=== PATIENT | female | born 1980 | race Caucasian/White ===

== ENCOUNTER 2021-05-03 14:02 | Outpatient (CLI) | payer OTHER, SELFPAY ==
--- NOTE | 2021-05-03 14:12 | MR_ITS ---
WS: [id number] MRI/MRCP OF THE ABDOMEN WITHOUT GADOLINIUM ENHANCEMENT TECHNIQUE: Thin and thick slab MRCP, Axial T2, Coronal MRCP, Axial Dual Echo, and Axial 2-D Fiesta imaging was obtained. Coronal 2-D Fiesta imaging. CLINICAL INFORMATION: FATTY LIVER DZ/HEPATOMEGALY/DILATED COMMON BILE DUCT COMPARISON: Ultrasound gallbladder April 20, 2021 FINDINGS: Mild hepatomegaly. No intrahepatic biliary ductal dilatation. Common bile duct has a more normal appe arance today measuring 5 mm. Normal gallbladder. No gallbladder wall thickening or pericholecystic fl uid. Normal tapering of the common bile duct distally. No choledocholithiasis. Pancreas is normal in appearance. No evidence of pancreatic head lesion. Normal portal vein and splen ic vein. No hydronephrosis in either kidney. Normal caliber abdominal aorta. Normal spleen. MR/MR MRCP [id number] Impression: 1. Mild hepatomegaly.No intrahepatic biliary ductal dilatation. 2. No choledocholithiasis. Gallbladder appears normal. 3. Common bile duct has a more normal appearance today. Normal tapering of the common bile duct distally. Common bile duct measures 5 mm. No evidence of chol edocholithiasis. 4. No hydronephrosis in either kidney. 5. No other significant findings.
== END 2021-05-03 14:03 | disposition home or self-care (01) ==
LOC: RAD 14:03
PROVIDERS: PCP Electrodiagnostic Medicine; Visit Provider Electrodiagnostic Medicine
DX: K76.0 Fatty (change of) liver, not elsewhere classified (principal); R16.0 Hepatomegaly, not elsewhere classified; K83.8 Other specified diseases of biliary tract
CPT/HCPCS: 74181

== ENCOUNTER → 2021-05-05 08:00 | Outpatient (BNVA) | payer OTHER, SELFPAY | PROVIDERS: PCP Nurse Practitioner Family; Visit Provider Nurse Practitioner Family | DX: K75.81 Nonalcoholic steatohepatitis (NASH) (principal); Z13.6 Encounter for screening for cardiovascular disorders; Z13.1 Encounter for screening for diabetes mellitus; K80.50 Calculus of bile duct without cholangitis or cholecystitis without obstruction | CPT/HCPCS: 80053; 80061; 83690; 86141 ==

== ENCOUNTER → 2023-01-18 11:23 | Outpatient (BNVA) | payer OTHER, SELFPAY | PROVIDERS: PCP Nurse Practitioner Family; Visit Provider Family Medicine | DX: Z68.42 Body mass index [BMI] 45.0-49.9, adult (principal); K75.81 Nonalcoholic steatohepatitis (NASH); K14.8 Other diseases of tongue | CPT/HCPCS: 80053; 80061; 83036; 84439; 84443; 85025 ==

== ENCOUNTER 2023-03-17 17:04 | Outpatient (CLI) | payer OTHER, SELFPAY ==
--- NOTE | 2023-03-17 | CTR_ITS ---
PROCEDURE INFORMATION: Exam: CT Neck With Contrast Exam date and time: 03/17/2023 5:23 PM Age: 42 years old Clinical indication: Mass, lump, or swelling in neck; Patient HX: Neoplasm of uncertain behavior of tongue; PT states bx on mass left side of tongue came back abnormal TECHNIQUE: Imaging protocol: Computed tomography of the neck with contrast. Radiation optimization: All CT scans at this facility use at least one of these dose optimization techniques: automated exposure control; mA and/or kV adjustment per patient size (includes targeted exams where dose is matched to clinical indication); or iterative reconstruction. Contrast material: OMNIPAQUE 350; Contrast volume: 95 ml; Contrast route: INTRAVENOUS (IV); COMPARISON: No relevant prior studies available. RADIATION DOSE METRICS: Total DLP (mGy-cm): 396.51 FINDINGS: Pharynx: Unremarkable. No significant tonsillar enlargement. Larynx: Unremarkable. Epiglottis is normal. Prevertebral and retropharyngeal spaces: Unremarkable. Salivary glands: Normal. Glands are normal in size. Thyroid: Normal. No enlarged or calcified nodules. Lymph nodes: Unremarkable. No lymphadenopathy. Trachea: Visualized trachea is unremarkable. Lungs: Unremarkable as visualized. Bones/joints: Unremarkable. No acute fracture. Soft tissues: Unremarkable. No significant soft tissue swelling. CT/CT neck w con* [id number] IMPRESSION: There is no evidence of active neoplastic disease.
[2023-03-17] MEDS: iohexol 350 mg/mL 500 mL Btl (per mL) IV (17:25)
== END 2023-03-17 17:05 | disposition home or self-care (01) ==
LOC: RAD 17:04
PROVIDERS: PCP Family Medicine; Visit Provider Otolaryngology
DX: D37.02 Neoplasm of uncertain behavior of tongue (principal)
CPT/HCPCS: 70491; Q9967

== ENCOUNTER → 2024-01-02 16:01 | Outpatient (BNVA) | payer OTHER, SELFPAY | PROVIDERS: PCP Family Medicine; Visit Provider Nurse Practitioner Women's Health | DX: Z01.419 Encounter for gynecological examination (general) (routine) without abnormal findings (principal); N92.0 Excessive and frequent menstruation with regular cycle | CPT/HCPCS: 87624 ==

== ENCOUNTER 2024-01-22 07:20 | Outpatient (CLI) | payer OTHER, SELFPAY ==
--- NOTE | 2024-01-22 07:30 | MM_ITS ---
WS: [id number] BILATERAL SCREENING DIGITAL TOMOSYNTHESIS MAMMOGRAM WITH CAD HISTORY: Z12.39 - Encounter for other screening for malignant neop... COMPARISON: None available. Bilateral CC and MLO views with tomosynthesis and synthetic mammography submitted. Computer aided det ection analyzed. Breast composition: There are scattered areas of fibroglandular density. No suspicious masses, microc alcifications or architectural distortion. Scattered calcifications. MM/MM scr BI tomosynthesis [id number] IMPRESSION: BI-RADS: 2 - Benign. FOLLOW UP: 1 Year Follow-up
== END 2024-01-22 07:21 | disposition home or self-care (01) ==
LOC: RAD 07:20
PROVIDERS: PCP Family Medicine; Visit Provider Nurse Practitioner Women's Health
DX: Z12.31 Encounter for screening mammogram for malignant neoplasm of breast (principal); R92.323 Mammographic fibroglandular density, bilateral breasts; R92.1 Mammographic calcification found on diagnostic imaging of breast
CPT/HCPCS: 77063; 77067

== ENCOUNTER → 2024-04-01 09:45 | Outpatient (BNVA) | payer OTHER, SELFPAY | PROVIDERS: PCP Family Medicine; Visit Provider Nurse Practitioner Women's Health | DX: Z01.419 Encounter for gynecological examination (general) (routine) without abnormal findings (principal); Z00.00 Encounter for general adult medical examination without abnormal findings | CPT/HCPCS: 80053; 82306; 82465; 82670; 83001; 83002; 83036; 83718; 83721; 84402; 84403; 84443; 85025 ==

== ENCOUNTER 2024-04-06 19:25 | Emergency (ER) | payer OTHER, SELFPAY ==
[2024-04-06] VITALS (7 sets, daily range): BP systolic 127–160; BP diastolic 63–85; PULSE 76–118; RESP 14–21; TEMP 36.9; O2SAT 98–100; BMI 51.7
--- NOTE | 2024-04-06 19:45 | XRR_ITS ---
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 Views: 1 view. COMPARISON: CT neck w con* [id number] 03/17/2023 5:23 PM FINDINGS: Lungs: Clear. No consolidation. Pleural spaces: No significant pleural effusion. No pneumothorax. Heart/Mediastinum: Within normal limits. No cardiomegaly. Bones/joints: Intact. Other findings: None. XR/XR chest 1V portable [id number] IMPRESSION: No acute findings.
--- NOTE | 2024-04-06 19:45 | ECG_ITS ---
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 Measurements Intervals [place] Rate: 114 P: 44 VA: 132 QRS: 52 QRSD: 86 T: 23 QT: 310 QTc: 428 Interpretive Statements SINUS TACHYCARDIA Nonspecific ST changes ABNORMAL RHYTHM ECG No previous ECG available for comparison Electronically Signed On 04-07-2024 12:11:28 PHYSICAL EDUCATION AIDE by Capri Mcallister M.D. [email or web address]
[2024-04-06 20:12] LABS: Basophils # 0.1 10^3/uL (0.0-0.1); Basophils % 0.9 %; Eosinophils # 0.2 10^3/uL (0.0-0.8); Eosinophils % 2.2 %; Hematocrit 41.6 % (36-47); Lymphocytes # 1.9 10^3/uL (0.8-4.8); Mean Corpuscular HGB Conc 32.7 g/dL (30-55); Mean Corpuscular Hemoglobin 27.8 pg (27-33); Mean Corpuscular Volume 85.1 fl (85-98); Mean Platelet Volume 11.5 fL (7.4-10.4); Monocytes # 0.4 10^3/uL (0.2-0.9); Monocytes % 5.9 %; Neutrophils # 4.25 10^3/uL (1.8-7.7); Neutrophils % 62.9 %; Nucleated Red Blood Cells % 0 %; Platelet Count 192 10^3/cmm (157-399); Red Blood Count 4.89 10^6/uL (3.85-5.65); Red Cell Distribution Width 15.1 % (12.1-15.1); White Blood Count 6.76 10^3/uL (3.29-11.43)
--- NOTE | 2024-04-06 20:16 | CTR_ITS ---
PROCEDURE INFORMATION: Exam: CTA Chest With Contrast CTA Abdomen and Pelvis With Contrast Exam date and time: 04/06/2024 8:33 PM Age: 43 years old Clinical indication: Radiating and sternal or substernal pain; Other: N/a; Prior surgery; Surgery date: 6+ months; Surgery type: Appy; C/O worsening substernal chest pain with posterior radiation into upper back over the last several days. ; Additional info: Dissection protocol TECHNIQUE: Imaging protocol: Computed tomographic angiography of the chest with contrast. Exam focused on the arteries. Computed tomographic angiography of the abdomen and pelvis with contrast. Exam focused on the arteries. 3D rendering (Not supervised by radiologist): MIP and/or 3D reconstructed images were created by the technologist. Radiation optimization: All CT scans at this facility use at least one of these dose optimization techniques: automated exposure control; mA and/or kV adjustment per patient size (includes targeted exams where dose is matched to clinical indication); or iterative reconstruction. Contrast material: OMNI 350; Contrast volume: 100 ml; Contrast route: INTRAVENOUS (IV); COMPARISON: MR MRCP [id number] 05/03/2021 3:07 PM RADIATION DOSE METRICS: Total DLP (mGy-cm): 1484.6 FINDINGS: VASCULATURE: Pulmonary arteries: Normal. No definite pulmonary emboli identified, although this study was performed to concentrate on the aorta. Aorta: No aortic aneurysm. No aortic dissection. Celiac trunk and mesenteric arteries: No occlusion or significant stenosis. Renal arteries: No occlusion or significant stenosis. Right iliac arteries: No occlusion or significant stenosis. Left iliac arteries: No occlusion or significant stenosis. CHEST: Lungs: Unremarkable. No consolidation. There is an 8 mm noncalcified nodule in the anterior left upper lobe. Pleural spaces: Unremarkable. No pneumothorax. No pleural effusion. Heart: Unremarkable. No cardiomegaly. No pericardial effusion. ABDOMEN AND PELVIS: Liver: Unremarkable. Gallbladder and biliary ducts: Unremarkable. No radiopaque stones. No ductal dilatation. Pancreas: Unremarkable. No mass. No ductal dilation. Spleen: Unremarkable. No splenomegaly. Adrenal glands: Unremarkable. No mass. Kidneys and ureters: Unremarkable. No solid mass. No hydronephrosis. Stomach and bowel: Unremarkable. No obstruction. No mucosal thickening. Appendix: Not identified with certainty. No evidence of appendicitis. Intraperitoneal space: Unremarkable. No free air. No significant fluid collection. Urinary bladder: Unremarkable. No mass. Reproductive: The uterus is bulky in appearance. There is a 2.3 cm exophytic structure adjacent to the posterior left lateral wall of the uterine body likely representing an exophytic fibroid. Lymph nodes: Unremarkable. No enlarged lymph nodes. Bones/joints: Unremarkable. No acute fracture. There are degenerative changes, particularly at L5-S1 and within the visualized lower thoracic spine. There appears to be mild central canal stenosis and at least moderate bilateral neural foraminal stenosis at L5-S1. Soft tissues: Unremarkable. CT/CT [facility] [id number] IMPRESSION: 1. Unremarkable CTA chest, abdomen, and pelvis. No evidence for aortic aneurysm or dissection. 2. Noncalcified 8 mm nodule in the left upper lobe.For patients at low risk (minimal or absent history of smoking and of other known risk factors), recommend CT Chest at 6-12 months, then consider CT Chest at 18-24 months. For patients at high risk (history of smoking or of other known risk factors), recommend CT Chest at 6-12 months, then CT Chest at 18-24 months. (Reference: Vandana) 3. Probable fibroid uterus. 4. Degenerative changes involving the spine, particularly at L5-S1, as described. REFERENCES: Vandana H, et al. Guidelines for Management of Incidental Pulmonary Nodules Detected on CT Images: From the Fleischner Society 2017. Radiology. 2017;284(1):228-243.
--- NOTE | 2024-04-06 20:19 | ED_ITS ---
HPI - Chest Pain 2 General: Chief Complaint: Chest Pain Stated Complaint: Chest Pain BP High Time Seen by Provider: 04/06/24 19:50 Source: patient History of Present Illness: Patient is a somewhat anxious 43-year-old obese female who presents with a complaint of substernal chest pain radiating into her back. She states she has had this pain for the last several days. She states she saw chiropractor recently who told her he thought her rib may have been out of place. She has been placing some diclofenac cream on the chest without any significant improvement of discomfort. She has some shortness of breath from time to time but denies that being a significant complaint. She denies any hemoptysis. She has had a mild cough from time to time. She has some difficulty describing the pain but states it feels like a constant sharp pain in the substernal area that radiates into her back. She denies any radiation pain to her sides. No diaphoresis or nausea or vomiting. She does not notice any worsening with exertion or improvement with rest. She denies any history of coronary artery disease. No history of PE or DVT. MD complaint: chest pain, chest heaviness and chest discomfort Associated symptoms: Reports dyspnea; Deny abdominal pain, diaphoresis, fever(s), nausea or vomiting Related Data Home Medications ?Medication ?Instructions ?Recorded ?Confirmed loratadine 10 mg tablet (Claritin) 10 mg PO DAILY 04/0704/01/24 Previous Rx's ?Medication ?Instructions ?Recorded tranexamic acid 650 mg tablet See Rx Instructions .Rou te 03/08/24 .COMPLEX #30 tabs lisinopril 10 mg tablet 10 mg PO DAILY #30 tabs 03/02 omeprazole 20 mg capsule,delayed 20 mg PO DAILY 30 day s #30 caps 04/06/24 release Allergies Allergy/AdvReac Type Severity Reaction Status Date / Time No Known Allergies Allergy Verified 04/01/24 08:37 Review of Systems 2 Const: Denies: fever(s), chills or diaphoresis Card: Reports: chest pain Resp: Reports: dyspnea GI: Denies: abdominal pain, nausea or vomiting Skin/Breast: Denies: rash Neuro: Denies: headache(s) PFSH ED 2 PFSH: Medical History COVID-19 Surgical History History of ankle surgery History of appendectomy History of left knee surgery Family History Mother Thyroid disease Grandmother Diabetes Other Hypothyroidism Denies family history of Liver disease CAD (coronary artery disease) Aneurysm Autoimmune disease Clotting disorder Dementia Hyperlipidemia Psychiatric illness Chronic kidney disease (CKD) Bleeding disorder Lung disease Cancer Hypertension Stroke Social History Smoking and tobacco/nicotine status: never used tobacco/nicotine Alcohol intake: never Substance/Drug Use: never Lives independently: Yes Marital status: Number of children: 1 Current occupational status: employed 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 Special evelyn needs: No Physical Exam 2 Narrative: EXAM NARRATIVE: Somewhat tearful and mildly anxious 43-year-old female in no acute distress Const: COMMON NORMALS: no acute distress, average body habitus, alert and well nourished GENERAL APPEARANCE: cooperative ORIENTATION/CONSCIOUSNESS: Yes awake HENMT: COMMON NORMALS: normocephalic and atraumatic HEAD & SCALP: n ormocephalic and atraumatic Eye: COMMON NORMALS: conjunctivae normal CONJUNCTIVA: Yes conjunctivae normal Neck/C-Spine: GENERAL: Yes normal visual inspection Resp: COMMON NORMALS: normal respiratory effort, No retractions and No use of accessory muscles Cardio: COMMON NORMALS: regular rhythm and Peripheral pulses 2+ throughout; negative for regular rate (mild tachycardia) RATE: abnormal rate (mild tachycardia) RHYTHM: regular rhythm PERIPHERAL PULSES: Peripheral pulses 2+ throughout GI: COMMON NORMALS: Soft to palpation and non-tender PALPATION: Yes Soft to palpation Extremity: COMMON NORMALS: full ROM and no pedal edema Neuro: COMMON NORMALS: no focal motor deficits SENSORIUM/ORIENTATION: Yes alert Skin: COMMON NORMALS: no rashes or lesions noted GENERAL SKIN EXAM: no rashes or lesions noted Course 2 Vital Signs: Vital signs: Vital Signs Temperature 98.5 F 04/06/24 19:30 Pulse Rate 88 04/06/24 21:50 Respiratory Rate 17 04/06/24 21:50 Blood Pressure 160/85 04/06/24 21:50 Pulse Oximetry 100 04/06/24 21:50 Oxygen Delivery Me thod Room Air 04/06/24 19:30 MDM - Chest Pain Medical Decision Making Patient is a somewhat anxious 43-year-old female who presents to the ER with complaints of some substernal chest pain that she states is a sharp stabbing pain radiating into her back for the last few days. She recently saw chiropractor who told her that he thought part of her rib was out of place. She had some worsening pain tonight and also acknowledges some anxiety associated with it. Patient's EKG is sinus tachycardia. No ischemic ST elevations. I do not appreciate any significant ST depressions despite the machine read to having some ST depression. Patient's labs were obtained including a CBC, CMP, troponin and chest x-ray as well as a CTA of the chest abdomen pelvis to evaluate for possible dissection given her pain that is in her chest that radiates into her back. Troponin is completely normal. CBC and CMP are unremarkable. CT of the chest abdomen and pelvis is pending however I do not appreciate any acute abnormalities on my initial scan through it. Patient received a GI cocktail here. She also received a dose of labetalol. Blood pressure has trended down and on recheck is 140s over 80s. She reports feeling quite a bit better. Pulse oximetry is 100% on room air. Assuming her CTA is negative anticipate discharge home with recommendation to follow-up with her PCP for what seems to be most likely musculoskeletal versus gastrointestinal related discomfort. I recommend continuation of omeprazole and again outpatient follow-up with her PCP this week. CTA is unremarkable. Patient is comfortable with discharge and states she is feeling better after being here. Return precautions were provided. Lab Data I reviewed the patient's lab results. 04/06/24 20:04 04/06/24 20:04 Radiology Impressions Chest X-Ray 04/06/24 19:45 IMPRESSION: No acute findings. Chest/Abdomen/Pelvis CTA 04/06/24 20:16 IMPRESSION: 1. Unremarkable CTA chest, abdomen, and pelvis. No evidence for aortic aneurysm or dissection. 2. Noncalcified 8 mm nodule in the left upper lobe.For patients at low risk (minimal or absent history of smoking and of other known risk factors), recommend CT Chest at 6-12 months, then consider CT Chest at 18-24 months. For patients at high risk (history of smoking or of other known risk factors), recommend CT Chest at 6-12 months, then CT Chest at 18-24 months. (Reference: Vandana) 3. Probable fibroid uterus. 4. Degenerative changes involving the spine, particularly at L5-S1, as described. REFERENCES: Vandana Feng, et al. Guidelines for Management of Incidental Pulmonary Nodules Detected on CT Images: From the Fleischner Society 2017. Radiology. 2017;284(1):228-243. Laboratory Results WBC 6.76 10^3/uL (3.29-11.43) 04/06/24 20:04 RBC 4.89 10^6/uL (3.85-5.65) 04/06/24 20:04 Hgb 13.60 g/dL (11.27-16.99) 04/06/24 20:04 Hct 41.6 % (36-47) 04/06/24 20:04 MCV 85.1 fl (85-98) 04/06/24 20:04 MCH 27.8 pg (27-33) 04/06/24 20:04 MCHC 32.7 g/dL (30-55) 04/06/24 20:04 RDW 15.1 % (12.1-15.1) 04/06/24 20:04 Plt Count 192 10^3/cmm (157-399) 04/06/24 20:04 MPV 11.5 fL (7.4-10.4) H 04/06/24 20:04 Neut % (Auto) 62.9 % 04/06/24 20:04 Lymph % (Auto) 28.0 % 04/06/24 20:04 Bartholomew % (Auto) 5.9 % 04/06/24 20:04 Eos % (Auto) 2.2 % 04/06/24 20:04 Baso % (Auto) 0.9 % 04/06/24 20:04 Neut # (Auto) 4.25 10^3/uL (1.8-7.7) 04/06/24 20:04 Lymph # (Auto) 1.9 10^3/uL (0.8-4.8) 04/06/24 20:04 Bartholomew # (Auto) 0.4 10^3/uL (0.2-0.9) 04/06/24 20:04 Eos # (Auto) 0.2 10^3/uL (0.0-0.8) 04/06/24 20:04 Baso # (Auto) 0.1 10^3/uL (0.0-0.1) 04/06/24 20:04 Nucleated RBC % (auto) 0 % 04/06/24 20:04 Nucleated RBCs # 0.0 /100WBC 04/06/24 20:04 Sodium 138 mmol/L (136-145) 04/06/24 20:04 Potassium 3.8 mmol/L (3.5-5.1) 04/06/24 20:04 Chloride 103 mmol/L (98-107) 04/06/24 20:04 Carbon Dioxide 26 mmol/L (22-29) 04/06/24 20:04 Anion Gap 12.8 (5-19) 04/06/24 20:04 BUN 17 mg/dL (6-20) 04/06/24 20:04 Creatinine 0.7 mg/dL (0.5-0.9) 04/06/24 20:04 GFR Calculation 91.8 mL/min (90-130) 04/06/24 20:04 Glucose 89 mg/dL (65-115) 04/06/24 20:04 Calculated Osmolality 287 mOsm/kg (285-295) 04/06/24 20:04 Calcium 10.6 mg/dL (8.5-10.5) H 04/06/24 20:04 Total Bilirubin 0.2 mg/dL (0.15-1.2) 04/06/24 20:04 AST 21 U/L (0-32) 04/06/24 20: ALT 19 U/L (0-33) 04/06/24 20:04 Alkaline Phosphatase 60 U/L (35-105) 04/06/24 20:04 Troponin T Baseline < 6 ng/L (0-10) 04/06/24 20:04 NT-Pro-B Natriuret Pep 51 pg/mL (0-125) 04/06/24 20:04 Total Protein 7.7 g/dL (6.6-8.7) 04/06/24 20:04 Albumin 4.4 g/dL (3.5-5.2) 04/06/24 20:04 Globulin 3.3 g/dL (1.3-4.6) 04/06/24 20:04 HCG, Qual Negative (Negative) 04/06/24 20:04 All radiology interpretation(s) finalized by discharge Discharge Plan Discharge Patient Disposition: Home Clinical Impression: Chest pain Condition: Stable Prescriptions: New omeprazole 20 mg capsule,delayed release(DR/EC) 20 mg PO DAILY 30 Days Qty: 30 0RF lisinopril 10 mg tablet 10 mg PO DAILY Qty: 30 0RF No Action loratadine [Claritin] 10 mg tablet 10 mg PO DAILY tranexamic acid 650 mg tablet See Rx Instructions .ROUTE .COMPLEX Qty: 30 2RF Dose Instruction: TAKE TWO TABLETS BY MOUTH THREE TIMES DAILY FOR 5 DAYS, start DAY before expected peroid Rx Instructions: TAKE TWO TABLETS BY MOUTH THREE TIMES DAILY FOR 5 DAYS, start DAY before expected peroid Discharge Orders: Discharge ED (Routine); Ordered 04/06/24 Ordered By: Hieu Locke Referrals: Terence Piña MD [Primary Care Provider] - Discharge Activity: Increase activity as tolerated Patient Instructions: Chest Pain (ED), Opioid Safety, Pain Management Activity Restrictions/Additional Instructions: Take all medication as directed. Follow-up with your primary care provider for recheck this week to discuss continued blood pressure management and further evaluation of chest pain. Return to the ER for any new or worsening symptoms or any other concerns. Print Language: [place] Coding Level of Care Code ED Fence Builder for Reilly Bryan
[2024-04-06 20:22] LABS: HCG, Serum Qual Negative (Negative)
[2024-04-06 20:30] LABS: Troponin(5th) Baseline < 6 ng/L (0-10)
[2024-04-06 20:31] LABS: Alanine Aminotransferase 19 U/L (0-33); Albumin Level 4.4 g/dL (3.5-5.2); Alkaline Phosphatase 60 U/L (35-105); Anion Gap 12.8 (5-19); Aspartate Amino Transferase 21 U/L (0-32); Blood Urea Nitrogen 17 mg/dL (6-20); Calcium 10.6 mg/dL (8.5-10.5); Carbon Dioxide 26 mmol/L (22-29); Chloride 103 mmol/L (98-107); Creatinine Clr Calc Pharmacy 170.6044; Globulin 3.3 g/dL (1.3-4.6); Glomerular Filtration Rate 91.8 mL/min (90-130); Glucose 89 mg/dL (65-115); Osmolality Calculated 287 mOsm/kg (285-295); Potassium 3.8 mmol/L (3.5-5.1); Sodium 138 mmol/L (136-145); Total Bilirubin 0.2 mg/dL (0.15-1.2); Total Protein 7.7 g/dL (6.6-8.7)
[2024-04-06] MEDS: lidocaine 2% viscous 15 ML, aluminum-mag hydrox-simethicon 30 ML, sucralfate oral liq 1 GM PO (20:32)
[2024-04-06] MEDS: labetalol 5 mg/mL SDV 20mL 10 MG IVP (20:32)
[2024-04-06] MEDS: iohexol 350 mg/mL 500 mL Btl (per mL) IV (20:38)
[2024-04-06 20:39] LABS: NT Pro B Type Natriuretic Pept 51 pg/mL (0-125)
--- NOTE | 2024-04-06 21:45 | ECG_ITS ---
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 Measurements Intervals [place] Rate: 90 P: 43 [place]: 160 QRS: 49 QRSD: 88 T: 30 QT: 351 QTc: 431 Interpretive Statements SINUS RHYTHM Compared to ECG 04/06/2024 19:29:12 Sinus tachycardia no longer present ST (T wave) deviation no longer present Electronically Signed On 04-07-2024 12:44:00 MARINE SUPERINTENDENT by Capri Mcallister M.D. [email or web address]
--- NOTE | 2024-04-06 22:20 | PC.NURSE ---
this nurse assumed pt care from Louise WHITAKER at 2220.
[2024-04-06 22:38] LABS: Troponin 5 2HR Delta 0.00001 ABS# (0-10)
== END 2024-04-06 22:57 | disposition home or self-care (01) ==
PROVIDERS: Emergency Medicine; Emergency Provider Student in an Organized Health Care Education/Training Program; PCP Family Medicine
DX: R07.9 Chest pain, unspecified (principal)
CPT/HCPCS: 36415; 71045; 71275; 74174; 80053; 83880; 84484; 84703; 85025; 93005; 96374; 99285; J3490

== ENCOUNTER 2025-01-22 07:56 | Outpatient (CLI) | payer OTHER, SELFPAY ==
--- NOTE | 2025-01-22 08:00 | MM_ITS ---
WS: [id number] BILATERAL SCREENING DIGITAL TOMOSYNTHESIS MAMMOGRAM WITH CAD HISTORY: Z12.39 - Encounter for other screening for malignant neop... COMPARISON: 01/22/2024 Bilateral CC and MLO views with tomosynthesis and synthetic mammography submitted. Computer aided detection analyzed. Breast composition: There are scattered areas of fibroglandular density. No suspicious masses, microcalcifications or architectural distortion. There are a few benign calcifications. No mass. MM/MM scr tomosynthesis [id number] IMPRESSION: BI-RADS: 2 - Benign. FOLLOW UP: 1 Year Follow-up
== END 2025-01-22 07:57 | disposition home or self-care (01) ==
LOC: RAD 07:58
PROVIDERS: PCP Family Medicine; Visit Provider Nurse Practitioner Women's Health
DX: Z12.31 Encounter for screening mammogram for malignant neoplasm of breast (principal); R92.323 Mammographic fibroglandular density, bilateral breasts; R92.1 Mammographic calcification found on diagnostic imaging of breast
CPT/HCPCS: 77063; 77067